=== PATIENT | male | born 2000 | race African-American/Black ===

== ENCOUNTER 2024-09-29 13:25 | Emergency (ER) | payer MEDICAID ==
[~2024-09-29] VITALS: Ht 195.6 cm; Wt 100.9 kg
[2024-09-29 13:32] VITALS: BP 145/76; PULSE 69; RESP 16; TEMP 98.2; O2SAT 100
[2024-09-29 14:29] LABS: ALCOHOL, URINE DRUG SCREEN NEGATIVE (NEGATIVE); AMPHET/METH SCREEN,URINE NEGATIVE (NEGATIVE); BARBITURATE SCREEN, URINE NEGATIVE (NEGATIVE); BENZODIAZEPINES SCREEN,URINE NEGATIVE (NEGATIVE); CANNABINOID SCREEN,URINE POSITIVE (NEGATIVE); COCAINE SCREEN,URINE NEGATIVE (NEGATIVE); METHADONE SCREEN, URINE NEGATIVE (NEGATIVE); OPIATE SCREEN,URINE NEGATIVE (NEGATIVE); PHENCYCLIDINE SCREEN,URINE NEGATIVE (NEGATIVE)
[2024-09-29 14:35] LABS: BASOPHILS % (AUTO) 0.5 % (0.0-2.0); EOSINOPHILS % (AUTO) 2.9 % (1.0-6.0); HEMATOCRIT 47.1 % (41-53); HEMOGLOBIN 15.9 g/dL (13.5-17.5); LYMPHOCYTES # (AUTO) 2.2 K/uL (1.0-4.8); LYMPHOCYTES % (AUTO) 25.8 % (22.0-44.0); MEAN CORPUSCULAR HEMOGLOBIN 28.4 pg (26.0-34.0); MEAN CORPUSCULAR HGB CONC 33.7 G/dL (31.0-37.0); MEAN CORPUSCULAR VOLUME 84 fL (80-100); MONOCYTES # (AUTO) 0.5 K/uL (0.1-1.0); MONOCYTES % (AUTO) 5.9 % (2.0-9.0); NEUTROPHILS # (AUTO) 5.6 K/uL (1.8-7.7); NEUTROPHILS % (AUTO) 64.9 % (40.0-70.0); PLATELET COUNT (AUTO) 226 K/uL (150-450); RED BLOOD CELL COUNT(AUTO) 5.59 MIL/uL (4.50-5.90); RED CELL DISTRIBUTION WIDTH 15.2 % (11.5-14.5); WHITE BLOOD COUNT (AUTO) 8.6 K/uL (4.5-11.0)
[2024-09-29 14:48] LABS: ANION GAP 6 mmol/L (8-16); CALCIUM, TOTAL 8.9 mg/dL (8.8-10.5); CARBON DIOXIDE 29 mmol/L (22-29); CHLORIDE 102 mmol/L (98-107); CREATININE 0.97 mg/dL (0.60-1.30); GLOMERULAR FILTR. RATE CALC > 60 mL/min (>60); GLUCOSE,RANDOM 88 mg/dL (70-110); POTASSIUM 3.7 mmol/L (3.5-5.1); SODIUM SERUM 137 mmol/L (136-145); UREA NITROGEN, BLOOD 15 mg/dL (7-18)
[2024-09-29 14:57] LABS: TROPONIN I-HIGH SENSITIVITY Less Than 4 ng/L (<76)
== END 2024-09-29 15:58 | disposition home or self-care (01) ==
LOC: EMS 13:25
DX: F41.9 Anxiety disorder, unspecified (principal); T78.1XXA Other adverse food reactions, not elsewhere classified, initial encounter; R00.2 Palpitations; R10.13 Epigastric pain; F17.210 Nicotine dependence, cigarettes, uncomplicated; X58.XXXA Exposure to other specified factors, initial encounter
CPT/HCPCS: 71045; 80048; 80307; 84484; 85025; 93005; 99285; 36415-L1; 36415-TC

== ENCOUNTER 2024-10-30 21:40 | Emergency (ER) | payer MEDICAID ==
[~2024-10-30] VITALS: Ht 195.6 cm; Wt 93.6 kg
[~2024-10-30 21:40] MED LIST: DIVA-112 PO; LITH300C3 PO
[2024-10-30 21:45] VITALS: TEMP 98.4
[2024-10-30 22:51] VITALS: BP 132/79; PULSE 84; RESP 18; O2SAT 99
== END 2024-10-30 22:57 | disposition home or self-care (01) ==
LOC: EMS 21:40
DX: Z20.6 Contact with and (suspected) exposure to human immunodeficiency virus [HIV] (principal); F32.A Depression, unspecified; F17.210 Nicotine dependence, cigarettes, uncomplicated
CPT/HCPCS: 99281; Z7502

== ENCOUNTER 2025-08-06 11:10 | Emergency (ER) | payer MEDICAID ==
[~2025-08-06] VITALS: Ht 195.6 cm; Wt 114.0 kg
[2025-08-06 11:19] VITALS: TEMP 98.1
[2025-08-06] MEDS ORDERED: BACITRACIN 28 GM OINTMENT TP ONE (11:40)
[2025-08-06] MEDS ORDERED: HYDR50CA6 PO (11:47)
[2025-08-06] MEDS ORDERED: ESCI5TAB16 PO (11:47)
[2025-08-06] MEDS ORDERED: TRAZ-252 PO (11:47)
[2025-08-06] MEDS ORDERED: IBUP-1554 PO (11:54)
[2025-08-06 12:14] VITALS: BP 140/84; PULSE 75; RESP 16; O2SAT 99
== END 2025-08-06 12:18 | disposition home or self-care (01) ==
LOC: EMS 11:10
DX: L97.909 Non-pressure chronic ulcer of unspecified part of unspecified lower leg with unspecified severity (principal); F32.9 Major depressive disorder, single episode, unspecified; F41.9 Anxiety disorder, unspecified; F12.90 Cannabis use, unspecified, uncomplicated; F17.210 Nicotine dependence, cigarettes, uncomplicated; Z79.899 Other long term (current) drug therapy; V89.2XXA Person injured in unspecified motor-vehicle accident, traffic, initial encounter; Y93.89 Activity, other specified; Y92.410 Unspecified street and highway as the place of occurrence of the external cause; Y99.8 Other external cause status
CPT/HCPCS: 99283